=== PATIENT | female | born 1980 | race African-American/Black ===

== ENCOUNTER 2017-01-26 04:52 | Emergency (ER) | payer MEDICAID, OTHER ==
[~2017-01-26] VITALS: Ht 177.8 cm; Wt 166.9 kg
[2017-01-26 05:01] VITALS: BP 151/95; PULSE 107; RESP 18; TEMP 98.2; O2SAT 98
[2017-01-26 06:15] VITALS: BP 164/98; PULSE 100; RESP 18; TEMP 98.4; O2SAT 99
--- NOTE | 2017-01-26 06:16 | PD ---
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 Patient states that she was having intercourse with her monogamous partner and during the process developed sharp pain with associated bleeding. Patient noted heavy bleeding onto the bed and then onto her leg and then while she was taking a shower had ongoing bleeding. Patient did not insert a tampon and has had dissipation of the vaginal bleeding. Patient only has mild spotting at this time. Patient rates her discomfort at this time 3/10 intensity. Patient rates pain at time of injury 10 over 10 in intensity. Patient states no devices were inserted into her it and intercourse other than partners normal anatomy. No condom use. Patient states that she has had irregular bleeding since discontinuing control pills less than one month ago. Patient was on control pills for approximately one month. Patient had an IUD that became dislodged July 2016 subsequently had an unplanned that was terminated and then more recently was started on control pills which she has also subsequently discontinued. Patient states she has remained sexually active throughout the past several months and that this is a first-time unusual event to occur. Patient denies other concerns or complaints. Patient also has history of hypertension but states she is not compliant with medications. Patient is here on vacation from [place]. [facility] Past Medical History Narrative Medical Hypertension, AB 2, ; no tobacco use; nursing notes reviewed Diminished Hearing: No Hypertension: Yes (no current medication) Influenza Vaccination: No ?: Unknown LMP: 01/11/2017 Menopausal: No : 4 Para: 2 : 2 Past Surgical History Surgical History: No Previous Surgery Section: Yes Social History Alcohol Use: Yes (occasional) Tobacco Use: No Substance Use: No Allergies-Medications (Allergen,Severity, Reaction): Coded Allergies: No Known Allergies (Unverified , 01/26/17) Narrative Medication Denies medication use Review of Systems Except as stated in HPI: all other systems reviewed are Neg General / Constitutional: No: Fever, Chills HENT: No: Congestion Cardiovascular: No: Chest Pain or Discomfort Respiratory: No: Shortness of Breath Gastrointestinal: No: Abdominal Pain Genitourinary: Positive: Pelvic Pain, Vaginal Bleeding Musculoskeletal: No: Myalgias Neurologic: No: Weakness Psychiatric: No: Anxiety Hematologic/Lymphatic: No: Lymph Node Enlargement Physical Exam Narrative GENERAL: Well-developed well-nourished female in no acute distress no respiratory distress SKIN: Warm and dry. HEAD: Normocephalic. EYES: No scleral icterus. No injection or drainage. NECK: Supple, trachea midline. No JVD or lymphadenopathy. CARDIOVASCULAR: Regular rate and rhythm without murmurs, gallops, or rubs. RESPIRATORY: Breath sounds equal bilaterally. No accessory muscle use. GASTROINTESTINAL: Abdomen soft, non-tender, nondistended. Pelvic exam: External exam no active bleeding scant dried blood no induration no erythema; speculum exam fresh blood in the vaginal vault in the 9:00 to 8 o'clock position there appears to be a tear along the right lateral vaginal vault wall with clot in place without active bleeding cervical os is closed. Patient will not allow a bimanual exam. MUSCULOSKELETAL: No cyanosis, or edema. BACK: Nontender without obvious deformity. No CVA tenderness. Data Data Last Documented VS Vital Signs Date Time Temp Pulse Resp B/P Pulse Ox O2 Delivery O2 Flow Rate FiO2 01/26/17 05:01 98.2 107 18 151/95 98 MDM Medical Decision Making Medical Screen Exam Complete: Yes Emergency Medical Condition: Yes Medical Record Reviewed: Yes Interpretation(s) [id number] hCG: negative Differential Diagnosis Vaginal laceration/tear, ectopic , ruptured ovarian cyst Narrative Course Patient aware of plan for basic lab work CBC type and screen Coagulation studies along with [facility] consultation and pelvic ultrasound/pelvic CT Patient does not want to have any lab work done does not want to be seen by a ladler is aware that there is no clear distinction of depth vaginal tear/ laceration and that the recommendation would be to consult with [facility] on-call and have them see the patient in the emergency department for further delineation as well as vertigo possible pelvic ultrasound/CT as well as basic blood work. Repeat vital signs blood pressure 164/98 patient admits to a noncompliant with antihypertensive medication heart rate 100 room air O2 saturation 99% temperature 98.4Fahrenheit respiration 18 and nonlabored; sanitary pad has been placed. Patient's decision to leave against medical advise discussed in detail with the patient the risk of leaving AGAINST MEDICAL ADVICE versus the benefit of staying and having completion of her workup. 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
== END 2017-01-26 06:42 | disposition left against medical advice (07) ==
LOC: PHED 04:52
DX: S31.41XA Laceration without foreign body of vagina and vulva, initial encounter (principal); I10 Essential (primary) hypertension; X58.XXXA Exposure to other specified factors, initial encounter; Z53.29 Procedure and treatment not carried out because of patient's decision for other reasons
CPT/HCPCS: 99283